=== PATIENT | male | born 1980 | race Caucasian/White ===

== ENCOUNTER 2017-01-07 11:35 | Emergency (ER) | payer MEDICAID ==
[~2017-01-07] VITALS: Ht 182.9 cm; Wt 78.0 kg
[~2017-01-07 11:35] MED LIST: ABIL5 PO; ALPR2TAB2 PO; COLE1TAB PO; ESCI10TA PO; HYDR4TAB4 PO; KEPP500 PO; LORA2TAB95 PO; MESA10003 RC; MESA800T PO; PENTASA PO; PRAZ2CAP2 PO; PRED5TAB48 PO; SACC250C PO; ZOLP10TA2 PO
[2017-01-07] MEDS ORDERED: FAMOTIDINE 20MG/2ML VIAL IV STA (12:20)
[2017-01-07] MEDS ORDERED: ONDANSETRON HCL 4MG/2ML VIAL IV STA (12:20)
[2017-01-07] MEDS ORDERED: SODIUM CHLORIDE 0.9% 1,000 ML IV ONE (12:20)
[2017-01-07] MEDS ORDERED: HYDROCODONE/ACETAMINOPHEN 5/325MG TABLET PO STA (12:20)
[2017-01-07] MEDS ORDERED: KETOROLAC 30MG/ML VIAL IV STA (12:20)
[2017-01-07 12:37] VITALS: BP 120/77
[2017-01-07 12:51] LABS: EOSINOPHILS % 5.1 % (0.0-5.0); HEMATOCRIT. 37.1 % (42.0-52.0); HEMOGLOBIN. 12.6 g/dL (14.0-18.0); LYMPHOCYTES % 31.5 % (20.0-50.0); MEAN CORPUSCULAR HEMOGLOBIN 28.9 pg (28.0-32.0); MEAN CORPUSCULAR VOLUME 85.3 fL (80.0-94.0); MEAN PLATELET VOLUME 7.2 fl (7.4-10.4); MONOCYTES % 14.7 % (2.0-8.0); NEUTROPHILS % 47.7 % (40.0-76.0); PLATELET 224 x1000/uL (130-400); RED BLOOD CELL COUNT 4.34 mill/uL (4.7-6.1); RED CELL DISTRIBUTION WIDTH 13.6 % (11.6-14.6)
[2017-01-07 12:58] LABS: CHLORIDE 108 mEq/L (98-107)
[2017-01-07 12:59] LABS: PROTHROMBIN TIME 10.6 sec
[2017-01-07 13:07] LABS: CARBON DIOXIDE 27 mEq/L (21-32)
== END 2017-01-07 13:22 | disposition left against medical advice (07) ==
LOC: ER 11:53
DX: R10.9 Unspecified abdominal pain (principal); K50.911 Crohn's disease, unspecified, with rectal bleeding; Z88.6 Allergy status to analgesic agent; Z88.5 Allergy status to narcotic agent; Z88.8 Allergy status to other drugs, medicaments and biological substances
CPT/HCPCS: 36415; 80053; 83690; 85025; 85610; 93005; 96361; 96374; 96375; 99285; J1885; J2405; J3490; J7030; Z7610

== ENCOUNTER 2017-01-29 15:40 | Emergency (ER) | payer MEDICAID ==
[~2017-01-29] VITALS: Ht 182.9 cm; Wt 73.0 kg
[~2017-01-29 15:40] MED LIST changes: -COLE1TAB PO; -HYDR4TAB4 PO; -LORA2TAB95 PO; -MESA10003 RC; -MESA800T PO; -PENTASA PO; -PRED5TAB48 PO
[2017-01-29] MEDS ORDERED: SODIUM CHLORIDE 0.9% 1,000 ML IV ONE (16:12)
[2017-01-29] MEDS ORDERED: FAMOTIDINE 20MG/2ML VIAL IV STA (16:12)
[2017-01-29] MEDS ORDERED: MORPHINE SULFATE 4 MG/ML CPJ (NOT FOR IM USE) IV ONE (16:15)
[2017-01-29 16:25] VITALS: BP 128/80
[2017-01-29 16:40] LABS: BASOPHILS % 0.4 % (0.0-2.0); EOSINOPHILS % 0.5 % (0.0-5.0); HEMATOCRIT. 37.1 % (42.0-52.0); HEMOGLOBIN. 12.5 g/dL (14.0-18.0); LYMPHOCYTES % 29.8 % (20.0-50.0); MEAN CORPUSCULAR HEMOGLOBIN 28.2 pg (28.0-32.0); MEAN CORPUSCULAR VOLUME 83.6 fL (80.0-94.0); MEAN PLATELET VOLUME 7.6 fl (7.4-10.4); MONOCYTES % 7.6 % (2.0-8.0); NEUTROPHILS % 61.7 % (40.0-76.0); PLATELET 204 x1000/uL (130-400); RED BLOOD CELL COUNT 4.43 mill/uL (4.7-6.1); RED CELL DISTRIBUTION WIDTH 13.8 % (11.6-14.6)
[2017-01-29 16:48] LABS: CARBON DIOXIDE 24 mEq/L (21-32); CHLORIDE 107 mEq/L (98-107)
== END 2017-01-29 18:06 | disposition home or self-care (01) ==
LOC: ER 16:06
DX: R10.9 Unspecified abdominal pain (principal); K62.5 Hemorrhage of anus and rectum; R11.2 Nausea with vomiting, unspecified; R19.7 Diarrhea, unspecified; R68.83 Chills (without fever); F43.10 Post-traumatic stress disorder, unspecified; K50.911 Crohn's disease, unspecified, with rectal bleeding; F31.9 Bipolar disorder, unspecified; Z90.49 Acquired absence of other specified parts of digestive tract; G40.909 Epilepsy, unspecified, not intractable, without status epilepticus; Z85.038 Personal history of other malignant neoplasm of large intestine; Z88.2 Allergy status to sulfonamides; Z88.6 Allergy status to analgesic agent; Z88.8 Allergy status to other drugs, medicaments and biological substances
CPT/HCPCS: 36415; 80053; 83690; 85025; 86850; 86900; 86901; 96361; 96374; 96375; 99284; J2270; J3490; J7030; Z7610